=== PATIENT | male | born 1995 | race Caucasian/White ===

== ENCOUNTER 2016-09-23 02:14 | Emergency (ER) | payer MEDICAID ==
[2016-09-23 02:31] VITALS: BP 121/72
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
--- NOTE | 2016-09-23 10:30 | CT ---
Head CT Technique: Multiple axial sections through the brain were obtained. Intravenous contrast was not utilized. Comparison: No previous intracranial imaging. Findings: Low density identified within the left frontal white matter and within cortical regions within the convexity. This occurs in area of previous craniotomy and is felt compatible with old area of encephalomalacia. No other abnormal parenchymal densities are seen. No evidence of intracranial hemorrhage. No midline shift or mass effect is seen. Increased density noted within the scalp within the left upper frontal region compatible with scarring. No acute calvarial abnormality is appreciated. Visualized paranasal sinuses, mastoid sinuses and middle ear cavities appear clear. Impression: 1. 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 2. No acute intracranial abnormality is identified. Diagnostic code #2 Agree with preliminary report issued by [facility] (preliminary [facility] report dictated on 09/23/16, 6:25 AM Central Time)
== END 2016-09-23 07:09 | disposition home or self-care (01) ==
LOC: JD.ED 02:14
DX: R20.9 Unspecified disturbances of skin sensation (principal); M79.605 Pain in left leg; R51 Headache; F17.210 Nicotine dependence, cigarettes, uncomplicated; Z88.8 Allergy status to other drugs, medicaments and biological substances
CPT/HCPCS: 36415; 70450; 70450-26; 80053; 80306; 81001; 85025; 86140; 99282; 99284-25